=== PATIENT | male | born 1950 | race Caucasian/White ===

== ENCOUNTER 2017-03-13 08:20 | Inpatient (IN) | payer OTHER, MEDICAID ==
[2017-03-13] MEDS ORDERED: fentaNYL 100 MCG/2 ML INJ ONE ×2 (08:24→11:53)
[2017-03-13] MEDS ORDERED: MIDAZOLAM 2 MG/2 ML VIAL ONE ×4 (08:25→12:08)
[2017-03-13] MEDS ORDERED: IOPAMIDOL (ISOVUE-370) 150 ML BTL IV ONE ×3 (08:26→12:49)
--- NOTE | 2017-03-13 08:31 | CPEKG ---
Heart Rate: 60 RR Interval: 1000 P-R Interval: 184 QRSD Interval: 92 QT Interval: 440 QTC Interval: 440 P [place]: 80 QRS [place]: -2 T Wave [place]: 67 EKG Severity - NORMAL ECG - EKG Impression: SINUS RHYTHM Electronically Signed By: Kristopher Nye 13-Mar-2017 10:16:44
[2017-03-13 08:32] LABS: % IMMATURE GRANULYOCYTES 0.3 % (0.0-1.1); ABSOLUTE IMMATURE GRANULOCYTES 0.02 10^3/uL (0.00-0.10); ADD DIFF? NO; ADD MORPH? NO; ADD SCAN? NO; ATYPICAL LYMPHOCYTE FLAG 10 (0-99); FRAGMENT RBC FLAG 0 (0-99); LEFT SHIFT FLG 0 (0-99); LIPEMIA HEMOLYSIS FLAG 80 (0-99); MEAN CELL HEMOGLOBIN 28.9 pg (27.9-34.1); MEAN CELL HEMOGLOBIN CONCENTR. 32.7 g/dL (32.4-36.7); MEAN CELL VOLUME 88.3 fL (81.5-99.8); MEAN PLATELET VOLUME 9.7 fL (8.7-11.7); PLATELET CLUMPS FLAG 20 (0-99); PLATELET COUNT 148 10^3/uL (150-400); RED BLOOD CELL COUNT 5.89 10^6/uL (4.40-6.38); RED CELL DISTRIBUTION WIDTH 12.5 % (11.5-15.2)
--- NOTE | 2017-03-13 08:35 | EDPHY ---
H & P Time Seen by Provider: 03/13/17 08:22 HPI/ROS: CHIEF COMPLAINT: Chest pain HISTORY OF PRESENT ILLNESS: Patient arrives as a cardiac alert and is met by Dr. Wooten from Cardiology and myself on arrival. Apparently had substernal crushing chest pain without radiation about 30 or 40 minutes prior to arrival, was given oral aspirin and nitroglycerin by paramedics , now symptoms are less. He describes it as being lateral and inferior to his left nipple. No shortness of breath and no cough and no recent injury or trauma. Arrives as a cardiac alert. REVIEW OF SYSTEMS: Eye: no change in vision ENT: no sore throat Cardiac: HPI, no fainting Pulmonary: no cough or SOB Abdomen: no vomiting, diarrhea, abdominal pain Musculoskeletal: no back pain Skin: no rash Neuro: no headache Constitutional: no fever : no urinary symptoms A comprehensive 10 point review of systems is otherwise negative aside from elements mentioned in the history of present illness, somewhat limited by the patient's dementia. PAST MEDICAL HISTORY: Parkinson's, dementia Social history: Lives at [employer] General Appearance: Alert and conversant, cooperative. Eyes: No scleral icterus. ENT, Mouth: Normal mucous membranes. Respiratory: Normal respiratory effort, breath sounds equal, lungs are clear to auscultation. Cardiovascular: Regular rate and rhythm. Gastrointestinal: Abdomen is soft and non tender. Neurological: Alert and follows commands. Normally conversant. Face symmetric , normal movement and sensation in all extremities. Skin: Warm and dry, no rashes. Musculoskeletal: No peripheral edema and no joint swelling. Psychiatric: Not agitated. Emergency Department course/MDM: Received aspirin and nitroglycerin by EMS. EKG reviewed by myself and Je does not show acute ST elevation. 835: Echocardiogram shows wall motion abnormality in the septum and apex, plan to go directly to cardiac catheterization lab. Je will contact family. Smoking Status: Former smoker Constitutional: Initial Vital Signs Temperature (C) 36.3 C 03/13/17 08:23 Heart Rate 71 03/13/17 08:23 Respiratory Rate 18 03/13/17 08:23 Blood Pressure 150/87 H 03/13/17 08:23 O2 Sat (%) 97 03/13/17 08:23 O2 Delivery Mode Room Air Allergies/Adverse Reactions: benztropine Allergy (Verified 07/18/16 20:16) levodopa Allergy (Verified 07/18/16 20:16) Sulfa (Sulfonamide Antibiotics) Allergy (Verified 07/18/16 20:16) Home Medications: Medication Instructions Recorded Acetaminophen [Tylenol 325mg (*)] 650 mg PO BID PRN 07/18/16 Carbidopa/Levo Cr 25/100Mg 1 tab PO DAILY 03/13/17 [Sinemet CR 25/100 MG (*)] Carbidopa/Levodopa 25/100Mg 1 tab PO QID 03/13/17 [Sinemet 25/100 MG (*)] Rivastigmine Tartrate 4.5 mg PO BID 03/13/17 [Rivastigmine] Medical Decision Making - Diagnostics EKG Interpretation: 12-lead EKG interpreted by me; official reading is in trace master. My interpretation is sinus rhythm with possibly some hyperacute anterior T-waves but no ST elevation or depression. Reviewed with Dr. Wooten from Cardiology. Differential Diagnosis: Differential diagnosis considered for chest pain including but not limited to myocardial ischemia, aortic dissection, pericarditis, pulmonary embolus, chest wall pain, pleural inflammation and pulmonary infectious causes. Critical Care Time: Critical care time spent by me, Dr. Nye, exclusively with the care of this patient was 20 minutes, exclusive of PA or MOISTURE METER OPERATOR time and exclusive of separate procedures. The organ system at risk was cardiovascular and I ordered consultation with rotor pilot, EKG, diagnostic studies reviewed including echocardiogram to stabilize the patient and prevent worsening of the patient's condition. - Data Points Laboratory Results: Laboratory Results 03/13/17 08:25 03/13/17 08:25 03/13/17 03/13/17 03/13/17 08:35 08:25 08:25 WBC 7.25 10^3/uL 10^3/uL (3.80-9.50) RBC 5.89 10^6/uL 10^6/uL (4.40-6.38) Hgb 17.0 g/dL g/dL (13.7-17.5) POC Hgb Hct 52.0 % H % (40.0-51.0) POC Hct MCV 88.3 fL fL (81.5-99.8) MCH 28.9 pg pg (27.9-34.1) MCHC 32.7 g/dL g/dL (32.4-36.7) RDW 12.5 % % (11.5-15.2) Plt Count 148 10^3/uL L 10^3/uL (150-400) MPV 9.7 fL fL (8.7-11.7) Neut % (Auto) 42.3 % % (39.3-74.2) Lymph % (Auto) 48.7 % H % (15.0-45.0) [place] % (Auto) 7.0 % % (4.5-13.0) Eos % (Auto) 0.7 % % (0.6-7.6) Baso % (Auto) 1.0 % % (0.3-1.7) Nucleat RBC Rel Count 0.0 % % (0.0-0.2) Absolute Neuts (auto) 3.07 10^3/uL 10^3/uL (1.70-6.50) Absolute Lymphs (auto) 3.53 10^3/uL H 10^3/uL (1.00-3.00) Absolute Monos (auto) 0.51 10^3/uL 10^3/uL (0.30-0.80) Absolute Eos (auto) 0.05 10^3/uL 10^3/uL (0.03-0.40) Absolute Basos (auto) 0.07 10^3/uL 10^3/uL (0.02-0.10) Absolute Nucleated RBC 0.00 10^3/uL 10^3/uL (0-0.01) Immature Gran % 0.3 % % (0.0-1.1) Immature Gran # 0.02 10^3/uL 10^3/uL (0.00-0.10) D-Dimer 0.43 ug/mLFEU ug/mLFEU (0.00-0.50) POC Sodium Sodium 144 mEq/L mEq/L (134-144) POC Potassium Potassium 4.5 mEq/L mEq/L (3.5-5.2) POC Chloride Chloride 108 mEq/L mEq/L (97-110) Carbon Dioxide 21 mEq/l L mEq/l (22-31) Anion Gap 15 mEq/L mEq/L (8-16) POC BUN BUN 11 mg/dL mg/dL (7-23) Creatinine 0.7 mg/dL mg/dL (0.7-1.3) POC Creatinine Estimated GFR > 60 Glucose 119 mg/dL H mg/dL (70-100) POC Glucose Calcium 9.7 mg/dL mg/dL (8.5-10.4) Total Bilirubin 1.1 mg/dL mg/dL (0.1-1.4) AST 24 IU/L IU/L (17-59) ALT 18 IU/L L IU/L (21-72) Alkaline Phosphatase 94 IU/L IU/L (38-126) Troponin I < 0.012 ng/mL ng/mL (0-0.034) Total Protein 7.2 g/dL g/dL (6.3-8.2) Albumin 4.5 g/dL g/dL (3.5-5.0) 03/13/17 08:20 WBC RBC Hgb POC Hgb 17.3 gm/dL gm/dL (13.7-17.5) Hct POC Hct 51 % % (40-51) MCV MCH MCHC RDW Plt Count MPV Neut % (Auto) Lymph % (Auto) [place] % (Auto) Eos % (Auto) Baso % (Auto) Nucleat RBC Rel Count Absolute Neuts (auto) Absolute Lymphs (auto) Absolute Monos (auto) Absolute Eos (auto) Absolute Basos (auto) Absolute Nucleated RBC Immature Gran % Immature Gran # D-Dimer POC Sodium 142 mEq/L mEq/L (134-144) Sodium POC Potassium 3.9 mEq/L mEq/L (3.3-5.0) Potassium POC Chloride 102 mEq/L mEq/L (97-110) Chloride Carbon Dioxide Anion Gap POC BUN 11 mg/dL mg/dL (7-23) BUN Creatinine POC Creatinine 0.8 mg/dL mg/dL (0.7-1.3) Estimated GFR Glucose POC Glucose 139 mg/dL H mg/dL (70-100) Calcium Total Bilirubin AST ALT Alkaline Phosphatase Troponin I Total Protein Albumin Medications Given: Discontinued Medications Clopidogrel Bisulfate (Plavix) 600 mg PO ONCE ONE Stop: 03/13/17 10:00 Last Admin: 03/13/17 14:04 Dose: Not Given Point of Care Test Results: 03/13/17 08:20 POC Sodium 142 POC Potassium 3.9 POC Chloride 102 POC BUN 11 POC Creatinine 0.8 POC Glucose 139 H Departure - Departure Disposition: To OP Cath/Surgery Clinical Impression: Acute coronary syndrome Chest pain Qualifiers: Chest pain type: unspecified Qualified Code(s): R07.9 - Chest pain, unspecified Condition: Good
[2017-03-13 08:54] LABS: TROPONIN I < 0.012 ng/mL (0-0.034)
[2017-03-13] MEDS ORDERED: BIVALIRUDIN 250 MG/5 ML VIAL IV ONE ×2 (08:58→12:17)
[2017-03-13] MEDS ORDERED: ATROPINE SULFATE 1 MG/10 ML SYR ONE ×2 (09:02→12:18)
[2017-03-13] MEDS ORDERED: EPINEPHrine 1 MG/10 ML SYR IVP ONE ×2 (09:02→12:18)
[2017-03-13 09:03] LABS: ALANINE AMINOTRANSFERASE 18 IU/L (21-72); ALBUMIN 4.5 g/dL (3.5-5.0); ALKALINE PHOSPHATASE 94 IU/L (38-126); ANION GAP 15 mEq/L (8-16); ASPARTATE AMINOTRANSFERASE 24 IU/L (17-59); BILIRUBIN,TOTAL 1.1 mg/dL (0.1-1.4); CALCIUM 9.7 mg/dL (8.5-10.4); CARBON DIOXIDE 21 mEq/l (22-31); CHLORIDE 108 mEq/L (97-110); CREATININE 0.7 mg/dL (0.7-1.3); GLOMERULAR FILTRATION RATE > 60; GLUCOSE 119 mg/dL (70-100); POTASSIUM 4.5 mEq/L (3.5-5.2); SODIUM 144 mEq/L (134-144); TOTAL PROTEIN 7.2 g/dL (6.3-8.2)
[2017-03-13] MEDS ORDERED: NITROGLYCERIN 1,500 MCG/15 ML VIAL MISC ONE ×2 (09:10→12:18)
[2017-03-13] MEDS ORDERED: CLOPIDOGREL BISULFATE 75 MG TAB ONE (09:33)
[2017-03-13] MEDS ORDERED: ATROPINE SULFATE 1 MG/10 ML SYR IVP PRN (09:59)
[2017-03-13] MEDS ORDERED: NITROGLYCERIN 0.4 MG BTL SL PRN (09:59)
[2017-03-13] MEDS ORDERED: TEMAZEPAM 15 MG CAP PO PRN (09:59)
[2017-03-13] MEDS ORDERED: CLOPIDOGREL BISULFATE 75 MG TAB PO ONE (09:59)
--- NOTE | 2017-03-13 10:36 | GHP ---
[f rep st] HISTORY AND PHYSICAL DATE OF ADMISSION: 03/13/2017 CHIEF COMPLAINT: Cardiac alert. HISTORY OF PRESENT ILLNESS: Mr. Esquivel is a 66-year-old gentleman with limited cardiac risk facto rs who presented to the emergency department on 03/13/2017, as a cardiac alert. The patient was in his usual state of health until approximately 30 to 40 minutes prior to admission when he began to e xperience chest pain described as an ache located over the left lateral precordium extending into hi s axilla. The chest discomfort was associated with nausea, vomiting, and diaphoresis. When his sym ptoms did not improve, EMS was activated, and he was brought to the emergency department for further evaluation. Initial EKGs in the field showed sinus rhythm with hyperacute T-waves with J-point hanna vation across the precordial leads. The patient was treated with aspirin and nitroglycerin with imp rovement in his symptoms. On arrival in the emergency department, the patient was still continuing to have chest discomfort. We were consulted to help in the further management of this patient. The patient denies a previous history of coronary artery disease. There is no history of hypertension, hyperlipidemia, or diabetes mellitus. Repeat EKG in the emergency department demonstrates sinus rh ythm, normal axis, normal intervals, [address]-segment elevation in lead V1 with J-point elevation acr oss the precordial leads. The patient has continued to have symptoms of chest discomfort but not na usea, vomiting, or diaphoresis at this time. PAST MEDICAL HISTORY: 1. Parkinson's. 2. Dementia. MEDICATIONS: Please see medicine reconciliation form. ALLERGIES: 1. Benztropine. 2. Levodopa. 3. Sulfa. SOCIAL HISTORY: The patient lives at [place]. FAMILY HISTORY: Noncontributory. REVIEW OF SYSTEMS: Ten-point review of systems is negative except as noted in HPI. PHYSICAL EXAMINATION: GENERAL: Patient is resting in bed. He appears to be mild distress. VITALS : Temperature is afebrile, pulse is 69, blood pressure 144/82, SaO2 97% on room air. HEENT: Normo cephalic, atraumatic. Extraocular muscles intact. The patient has typical facies consistent with P arkinson's. LUNGS: Clear to auscultation bilaterally. CARDIOVASCULAR: Regular rate and rhythm S1 , S2. Positive S4. ABDOMEN: Soft, nontender, normoactive bowel sounds. EXTREMITIES: No clubbing , cyanosis, or edema. NEURO: Patient is awake, alert. LABORATORY: White blood cell count is 7.25, hemoglobin is 17.0, hematocrit is 52.0, platelet count is 148. Sodium 144, potassium 4.5, chloride 108, CO2 21, BUN 11, creatinine 0.7. Initial troponin is less than 0.012. Echocardiogram: Rapid bedside echocardiogram demonstrated apical wall motion abnormality. ASSESSMENT AND PLAN: Mr. Esquivel is a 66-year-old gentleman with limited cardiac risk factors, who presents with an acute coronary syndrome. His initial troponin is within normal limits. His initi al EKG is not diagnostic of an ST-elevation myocardial infarction, but he is continuing to have symp toms of chest discomfort. An echocardiogram performed in the setting of chest discomfort demonstrat es an apical wall motion abnormality. Reviewed risks and benefits of cardiac catheterization with t he patient. Will arrange to have this performed emergently. Also called to discuss with the patien florence's power of health care attorney, his brother and [id number], they were not available for consultation. /[id number]/MODL
--- NOTE | 2017-03-13 11:42 | CPEKG ---
Heart Rate: 62 RR Interval: 968 P-R Interval: 188 QRSD Interval: 82 QT Interval: 420 QTC Interval: 427 P [place]: 86 QRS [place]: 26 T Wave [place]: 70 EKG Severity - OTHERWISE NORMAL ECG - EKG Impression: SINUS RHYTHM EKG Impression: MINIMAL ST ELEVATION, ANTERIOR LEADS Electronically Signed By: Kristopher Nye 13-Mar-2017 13:58:09
[2017-03-13] MEDS ORDERED: LIDOCAINE 1% 300 MG/30 ML SDV ONE (11:52)
[2017-03-13] MEDS ORDERED: EPTIFIBATIDE IV SCH (12:00)
[2017-03-13] MEDS ORDERED: EPTIFIBATIDE 200 MG/100 ML BOTTLE IV ONE (12:19)
[2017-03-13] MEDS ORDERED: EPTIFIBATIDE 20 MG/10 ML VIAL IVP ONE (13:03)
[2017-03-13] MEDS ORDERED: LABETALOL HCL 5 MG/ML 20 ML MDV ONE (13:10)
--- NOTE | 2017-03-13 13:57 | CPIP ---
[f rep st] INVASIVE CARDIAC PROCEDURE DATE OF PROCEDURE: 03/13/2017 PROCEDURE PERFORMED: 1. Coronary angiography. 2. Left ventriculography. 3. Stenting of left anterior descending coronary artery with Synergy drug-eluting stents. 4. Thrombectomy of left anterior descending coronary artery. INDICATION: Acute coronary syndrome. ACCESS: Patient was prepped and draped in sterile fashion. 1% lidocaine was used to anesthetize th e right inguinal region. A 6-[place] introducer sheath was placed selectively into the right common femoral artery via modified Seldinger technique. CORONARY ANGIOGRAPHY: A 6-[place] JL4 was advanced to the left main coronary artery and images obtai brittany. The left main coronary artery bifurcated into an LAD and circumflex coronary arteries. The le ft main coronary artery appeared normal. The left anterior descending coronary artery gave rise to one prominent branching diagonal artery. The left anterior descending coronary artery is diffusely diseased. In the mid I segment, there is sequential 30% to 40% stenosis present. In the mid II seg ment, there is a long segmental thrombotic 95% stenosis present with DAHLIA-3 flow. The first diagona l artery was a large vessel with mild diffuse disease in the mid vessel. There was no stenosis grea ter than 20%. The circumflex coronary artery is a large vessel, but was nondominant. Circumflex co ronary artery gave rise to two prominent OM branches. The circumflex coronary artery had moderate d iffuse disease throughout with no stenosis greater than 30%. A 6-[place] JR4 was advanced to the rig ht coronary artery. Images obtained. The right coronary artery is dominant. The right coronary ar jordin had a single discrete 100% occlusion in the mid vessel. There was bridging, right to right col laterals indicating this is likely chronic. LEFT VENTRICULOGRAPHY: A 6-[place] pigtail catheter was advanced to the left ventricle and images ob tained. Left ventricle was normal in size with mildly reduced systolic function. Estimated ejectio n fraction was 50%. The apex and the infero apex were hypokinetic. Percutaneous coronary intervention of the left anterior descending coronary artery. A 6-[place] EBU 3.5 catheter was advanced to the left main coronary artery and images obtained. Angiography confirm ed the presence of high-grade disease involving the mid left anterior descending coronary artery. A Luge wire was placed in the distal vessel and position verified by angiography. A thrombectomy cat heter was advanced and thrombectomy performed. Followup angiography demonstrated significant residu al stenosis with DAHLIA-3 flow. A 2.5 x 28 Synergy drug-eluting stent was then placed across the lesi on and deployed. Followup angiography demonstrated DAHLIA-3 flow at the distal edge of the stent. The re was an edge dissection versus significant stenosis. The patient was given nitroglycerin without resolution of the stenosis. A second 2.5 Synergy stent was then placed. The first stent telescoped distally. This was a 2.5 x 12 Synergy stent and deployed. Followup angiography demonstrated DAHLIA- 3 flow. No residual stenosis. COMPLICATIONS: None. CONCLUSIONS: 1. Two vessel coronary artery disease. 2. Reduced left ventricular systolic function with an estimated ejection fraction of 50%. Apical h ypokinesis. 3. Status post successful percutaneous coronary intervention of the left anterior descending ulloa ry artery with Synergy drug-eluting stent. /[id number]/MODL
[2017-03-13 15:48] LABS: CK-MB INTERPRETATION POSITIVE (NEGATIVE)
--- NOTE | 2017-03-13 18:23 | GCON ---
[f rep st] CONSULTATION SCALE MODEL MAKER CONSULTATION DATE OF CONSULTATION: 03/13/2017 REASON FOR ADMISSION: Acute MIs, coronary artery disease, status post stents. HISTORY OF PRESENT ILLNESS: This patient is a very pleasant 66-year-old white male with a past [facility] history of Parkinson's and dementia. He presented to the emergency room as a cardiac alert. He was seen quickly by Cardiology and was taken to the cardiac catheterization lab. He was found to h ave stenosis of the left anterior descending and he received 2 stents. He was admitted to the [facility] care unit. Currently, he is resting comfortably. He is complaining of some moderate chest discomfort. He stat es prior to this, he was in his normal state of health. There was no associated nausea, vomiting, o r diaphoresis at the time. PAST MEDICAL HISTORY: Significant for Parkinson's and dementia. ALLERGIES: Are to benztropine, levodopa and sulfa. SOCIAL HISTORY: No history of tobacco use. He resides at [place]. PHYSICAL EXAM: VITAL SIGNS: Blood pressure is 157/87, pulse 105, respirations 76, temperature is 3 6.3, oxygen saturation 97% on room air. GENERAL: He is a very thin, elderly white male who is rest ing comfortably, on supplemental oxygen. HEENT: Eyes are [place], EOMI. Throat shows no erythema or tonsillar hypertrophy. NECK: Supple. No cervical adenopathy. HEART: Regular rate and rhythm wit h a 2/6 systolic murmur at the left sternal border without radiation. LUNGS: Diminished breath shayne nds with mild prolongation of the expiratory phase, but there is no wheeze. ABDOMEN: Soft, nontend er. Bowel sounds are present in all 4 quadrants. EXTREMITIES: No clubbing, cyanosis, or edema. LABORATORIES: White count is 7.2, hemoglobin is 17, hematocrit 52, platelet count is 148. Sodium 1 42, potassium 3.9, chloride 102, CO2 is 21, BUN 11, creatinine 0.7, glucose is 139. AST and ALT are normal. Troponins are negative. IMPRESSION: 1. Acute myocardial infarction. 2. Coronary artery disease status post stents. 3. History of Parkinson disease. 4. Dementia. RECOMMENDATIONS: 1. DVT and PE prophylaxis. 2. Stress ulcer prophylaxis. 3. Adequate pain control. 4. Continue his home medications. Thank you very much. /[id number]/MODL
[2017-03-13] MEDS: CARVEDILOL 3.125 MG TAB PO SCH (20:04)
[2017-03-13] MEDS: CARBIDOPA/LEVODOPA 25 MG/100 MG TAB PO SCH (20:04)
[2017-03-13] MEDS: CARBIDOPA/LEVO CR 25 MG/100 MG TAB PO SCH (20:08)
[2017-03-13] MEDS: ONDANSETRON 4 MG/2 ML VIAL IVP PRN (20:46)
[2017-03-13] MEDS ORDERED: RIVASTIGMINE TARTRATE 4.5 MG PO SCH (21:00)
[2017-03-14 04:58] LABS: % IMMATURE GRANULYOCYTES 0.2 % (0.0-1.1); ABSOLUTE IMMATURE GRANULOCYTES 0.02 10^3/uL (0.00-0.10); ADD DIFF? NO; ADD MORPH? NO; ADD SCAN? NO; ATYPICAL LYMPHOCYTE FLAG 0 (0-99); FRAGMENT RBC FLAG 10 (0-99); HEMATOCRIT 46.7 % (40.0-51.0); HEMOGLOBIN 15.5 g/dL (13.7-17.5); LEFT SHIFT FLG 0 (0-99); LIPEMIA HEMOLYSIS FLAG 80 (0-99); MEAN CELL HEMOGLOBIN 28.7 pg (27.9-34.1); MEAN CELL HEMOGLOBIN CONCENTR. 33.2 g/dL (32.4-36.7); MEAN CELL VOLUME 86.3 fL (81.5-99.8); PLATELET CLUMPS FLAG 30 (0-99); PLATELET COUNT 153 10^3/uL (150-400); RED BLOOD CELL COUNT 5.41 10^6/uL (4.40-6.38); RED CELL DISTRIBUTION WIDTH 12.5 % (11.5-15.2)
--- NOTE | 2017-03-14 05:04 | CPIP ---
[f rep st] INVASIVE CARDIAC PROCEDURE DATE OF PROCEDURE: 03/13/2017 PROCEDURE: 1. Coronary angiography. 2. Thrombectomy of left anterior descending coronary artery. 3. Intravascular ultrasound of left anterior descending coronary artery. 4. Stenting of left anterior descending coronary artery with Synergy drug-eluting stent. INDICATION: Patient initially presented with an acute coronary syndrome and a new wall motion abnor mality on his echocardiogram. He was taken to the cardiac catheterization laboratory for risk strat ification. Coronary angiography demonstrated 2 vessel coronary artery disease involving the right c oronary artery and left anterior descending coronary artery. His left anterior descending coronary artery was felt to be the culprit lesion. He was treated with percutaneous coronary intervention us ing Synergy drug-eluting stents. The patient did well post procedure, but then developed recurrent symptoms of angina and he was brought back to the cardiac catheterization laboratory for concern of subacute stent thrombosis. ACCESS: The patient was prepped and draped in sterile fashion. 1% lidocaine was used to anesthetiz e the left inguinal region. A 6-Maltese introducer sheath was placed selectively in the left common femoral artery via modified Seldinger technique. CORONARY ANGIOGRAPHY: A 6-Maltese JL4 was advanced to the left main coronary artery and images obtai brittany. The left main coronary artery bifurcated into an LAD and circumflex coronary arteries. The le ft main coronary artery appeared normal. The left anterior descending coronary artery was previousl y stented in the mid segment. The previously placed stent was thrombosed. Percutaneous coronary in tervention of the left anterior descending coronary artery. A 6-Maltese EBU 3.5 catheter was advance d to the left main coronary artery and images obtained. Angiography confirmed the presence of subac ewiiaapaayp stent thrombosis of the left anterior descending coronary artery. A Luge wire was placed in the distal vessel and position verified by angiography. Thrombectomy was performed using a Pronto cath eter. Followup angiography demonstrated DAHLIA-3 flow and mild residual stenosis. Intravascular ultr asound probe was then advanced and images obtained. Intravascular ultrasound demonstrated no eviden ce of distal edge dissection. Intravascular ultrasound demonstrated incomplete stent expansion of t he previously placed stents. In the proximal portion of the previously placed stents 220 degrees of calcium could be seen making it difficult to exclude a proximal edge dissection. The previously pl aced stents were postdilated with a 3.0 x 20 noncompliant balloon. Followup angiography demonstrate d DAHLIA 3 flow. No residual stenosis. A 3.0 x 24 Synergy drug-eluting stent was then placed in the proximal vessel and extended into the previously placed stents and deployed. Followup angiography d emonstrated DAHLIA 3 flow. No residual stenosis. COMPLICATIONS: None. CONCLUSIONS: 1. Subacute stent thrombosis of the previously placed LAD stent. 2. No evidence of distal edge dissection on intravascular ultrasound. 3. Incomplete stent expansion by intravascular ultrasound. 4. Cannot exclude proximal edge dissection secondary to 220 degrees of calcification at the site of the proximal stent. 5. Status post successful deployment of a 3.0 x 24 Synergy drug-eluting stent in the proximal left anterior descending coronary artery extending into the previously placed stent. The previously plac ed stents were postdilated with a 3.0 x 20 noncompliant balloon. /[id number]/MODL
[2017-03-14 05:15] LABS: ALANINE AMINOTRANSFERASE 30 IU/L (21-72); ALBUMIN 3.8 g/dL (3.5-5.0); ALKALINE PHOSPHATASE 81 IU/L (38-126); ANION GAP 11 mEq/L (8-16); ASPARTATE AMINOTRANSFERASE 100 IU/L (17-59); BILIRUBIN,TOTAL 2.2 mg/dL (0.1-1.4); BILIRUBIN-CONJUGATED 0.2 mg/dL (0.0-0.5); CALCIUM 9.5 mg/dL (8.5-10.4); CARBON DIOXIDE 27 mEq/l (22-31); CHLORIDE 103 mEq/L (97-110); CHOLESTEROL 204 mg/dL (140-220); CHOLESTEROL/HDL RATIO 4.64 RATIO (1.00-4.97); CREATININE 0.8 mg/dL (0.7-1.3); GLOMERULAR FILTRATION RATE > 60; GLUCOSE 87 mg/dL (70-100); HIGH DENSITY LIPOPROTEIN 44 mg/dL (40-65); LOW DENSITY LIPOPROTEIN 141 mg/dL (80-100); NON-HIGH DENSITY LIPOPROTEIN 160 mg/dL (90-129); POTASSIUM 4.1 mEq/L (3.5-5.2); SODIUM 141 mEq/L (134-144); TOTAL PROTEIN 6.4 g/dL (6.3-8.2); TRIGLYCERIDE 99 mg/dL (40-150); VERY LOW DENSITY LIPOPROTEINS 19 mg/dL (8-25)
[2017-03-14 06:07] LABS: CK-MB INTERPRETATION POSITIVE (NEGATIVE)
[2017-03-14] MEDS: CARBIDOPA/LEVODOPA 25 MG/100 MG TAB PO SCH ×4 (06:10→21:17)
[2017-03-14] MEDS: ONDANSETRON 4 MG/2 ML VIAL IVP PRN (06:10)
--- NOTE | 2017-03-14 08:48 | CPEKG ---
Heart Rate: 74 RR Interval: 811 P-R Interval: 168 QRSD Interval: 82 QT Interval: 388 QTC Interval: 431 P [place]: 75 QRS [place]: -6 T Wave [place]: 96 EKG Severity - ABNORMAL ECG - EKG Impression: SINUS RHYTHM EKG Impression: PROBABLE ANTEROSEPTAL INFARCT, AGE INDETERM Electronically Signed By: Rodríguez Wooten 15-Mar-2017 17:22:02
[2017-03-14] MEDS: TICAGRELOR 90 MG TAB PO SCH ×2 (08:56→21:17)
[2017-03-14] MEDS: CARBIDOPA/LEVO CR 25 MG/100 MG TAB PO SCH (08:56)
[2017-03-14] MEDS: CARVEDILOL 3.125 MG TAB PO SCH ×2 (08:56→17:38)
[2017-03-14] MEDS: ATORVASTATIN CALCIUM 20 MG TAB PO SCH (08:56)
[2017-03-14] MEDS: ASPIRIN EC 81 MG TAB PO SCH (08:56)
[2017-03-14] MEDS ORDERED: CLOPIDOGREL BISULFATE 75 MG TAB PO SCH (09:00)
[2017-03-14] MEDS ORDERED: LISINOPRIL 5 MG TAB PO SCH (09:00)
[2017-03-14] MEDS ORDERED: ASPIRIN EC 325 MG TAB PO SCH ×2 (09:00)
[2017-03-14] MEDS ORDERED: ATORVASTATIN CALCIUM 20 MG TAB PO SCH (09:00)
--- NOTE | 2017-03-14 09:44 | PDINTPN ---
Regulatory Affairs Manager Progress Note Assessment/Plan: Assessment: * Acute myocardial infarction-chest pain has resolved * Coronary artery disease * Status post LAD stents-on Integrilin * Parkinson's disease * Dementia * Nutrition-appetite is good Plan: [facility] 03/14/17 09:44 Subjective: Resting comfortably. Denies any current chest pain. Admits to a small headache. Appetite is adequate Objective: Vital Signs Temp Pulse Resp BP Pulse Ox 37.0 C 83 17 149/78 H 92 03/14/17 00:00 03/14/17 06:00 03/14/17 06:00 03/14/17 06:00 03/14/17 06:00 Laboratory Results 03/14/17 04:45 03/14/17 04:45 03/13/17 03/14/17 03/15/17 05:59 05:59 05:59 Intake Total 210.3 Output Total 150 Balance 60.3 Laboratory Results 03/14/17 04:45 03/14/17 04:45 03/14/17 03/13/17 03/13/17 04:45 14:35 08:25 Calcium 9.5 mg/dL mg/dL (8.5 - 10.4) Total Bilirubin 2.2 mg/dL H D mg/dL (0.1 - 1.4) Conjugated Bilirubin 0.2 mg/dL mg/dL (0.0 - 0.5) Unconjugated Bilirubin 2.0 mg/dL H mg/dL (0.0 - 1.1) AST 100 IU/L H IU/L 24 IU/L IU/L (17 - 59) (17 - 59) ALT 30 IU/L IU/L 18 IU/L L IU/L (21 - 72) (21 - 72) Alkaline Phosphatase 81 IU/L IU/L 94 IU/L IU/L (38 - 126) (38 - 126) Creatine Kinase 515 IU/L H IU/L 278 IU/L H IU/L (0 - 224) (0 - 224) CK-MB (CK-2) Fraction 50.70 ng/mL H ng/mL 27.60 ng/mL H ng/mL (0 - 3.19) (0 - 3.19) CK-MB (CK-2) % 9.8 % H % 9.9 % H % (0.0 - 4.0) (0.0 - 4.0) Creatine Kinase Interp POSITIVE H POSITIVE H Troponin I 17.300 ng/mL H ng/mL < 0.012 ng/mL ng/mL (0 - 0.034) (0 - 0.034) Total Protein 6.4 g/dL g/dL 7.2 g/dL g/dL (6.3 - 8.2) (6.3 - 8.2) Albumin 3.8 g/dL g/dL 4.5 g/dL g/dL (3.5 - 5.0) (3.5 - 5.0) Triglycerides 99 mg/dL mg/dL (40 - 150) Cholesterol 204 mg/dL mg/dL (140 - 220) Cholesterol Risk Factr 1.0 (0.2 - 1.0) LDL Cholesterol, Calc 141 mg/dL H mg/dL (80 - 100) LDL Risk Factor 1.0 (0.2 - 1.0) VLDL Cholesterol 19 mg/dL mg/dL (8 - 25) Non-HDL Cholesterol 160 mg/dL H mg/dL (90 - 129) HDL Cholesterol 44 mg/dL mg/dL (40 - 65) LDL/HDL Ratio 3.20 RATIO RATIO (1.00 - 3.64) Cholesterol/HDL Ratio 4.64 RATIO RATIO (1.00 - 4.97) Physical Exam - Physical Exam General Appearance: WD/WN, alert, no apparent distress EENT: PERRL/EOMI, normal ENT inspection, pharynx normal, TMs normal Neck: non-tender, full range of motion, supple, normal inspection Respiratory: chest non-tender, lungs clear, normal breath sounds Cardiac/Chest: normal peripheral pulses, regular rate, rhythm, systolic murmur Abdomen: normal bowel sounds, non-tender, soft Male Genitalia: deferred Rectal: deferred Skin: normal color, warm/dry ICD10 Worksheet Patient Problems: Problems Problem Status Onset Acute coronary syndrome Acute Chest pain Acute Dehydration Acute Failure to thrive Acute Generalized weakness Acute Poor nutrition Acute
[2017-03-14 14:40] LABS: CK-MB INTERPRETATION POSITIVE (NEGATIVE)
--- NOTE | 2017-03-14 16:49 | SOAPPROG ---
HARPREET Progress Note Assessment/Plan: 1. ACS - Pt presented with an ACS. His echocardiogram demonstrated an apical wall motion abnormality. 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 He was treated with PCI of his LAD using synergy PAMELA. His post procedure course was complicated by subacute stent thrombosis. He was treated with repeat PCI of his LAD. Peak CPK was 515. LVEF was 50% with apical hypokinesis. Pt denies recurrent angina. No orthopnea or PND. No significant arrhythmias overnight. --> change plavix to brilinta given SAT --> Continue asa and coreg. 2. CM - Pt has an ICM with an EF of 50%. He denies symptoms of CHF. lisinopril was added to his coreg this am, however, he has become hypotensive. Will DC lisinopril at this time. --> Repeat echocardiogram in am 3. Hyperlipidemia - LDL = 141 --> Start lipitor 40 mg daily Subjective: No chest pain No orthopnea or PND No significant arrhythmias on telemetry monitoring this am. Objective: Vital Signs Temp Pulse Resp BP Pulse Ox 36.2 C 77 16 77/44 L 95 03/14/17 16:00 03/14/17 16:00 03/14/17 16:00 03/14/17 16:00 03/14/17 16:00 Laboratory Results 03/14/17 04:45 03/14/17 04:45 03/13/17 03/14/17 03/15/17 05:59 05:59 05:59 Intake Total 210.3 Output Total 150 Balance 60.3 Physical Exam - Physical Exam General Appearance: alert, no apparent distress Respiratory: lungs clear Cardiac/Chest: regular rate, rhythm Abdomen: normal bowel sounds, non-tender, soft Extremities: other (No hematoma or echymosis R and L access sites), No pedal edema Neuro/Psych: alert ICD10 Worksheet Patient Problems: Problems Problem Status Onset Acute coronary syndrome Acute Chest pain Acute Dehydration Acute Failure to thrive Acute Generalized weakness Acute Poor nutrition Acute
[2017-03-14] MEDS: RIVASTIGMINE TARTRATE 1.5 MG CAP PO SCH (21:18)
[2017-03-15] MEDS: CARBIDOPA/LEVODOPA 25 MG/100 MG TAB PO SCH ×3 (06:23→16:25)
--- NOTE | 2017-03-15 08:49 | PDINTPN ---
Marketing Admin Progress Note Assessment/Plan: Assessment: * Acute myocardial infarction-chest pain has resolved * Coronary artery disease * Status post LAD stents * Parkinson's disease * Dementia-patient awake and alert. Answering questions appropriately. * Nutrition-appetite is good Plan: [employer] Subjective: Resting comfortably. Denies any chest pain. Had many questions about his heart. Objective: Vital Signs Temp Pulse Resp BP Pulse Ox 36.3 C 74 15 97/53 L 96 03/15/17 08:00 03/15/17 08:00 03/15/17 08:00 03/15/17 08:00 03/15/17 08:00 Laboratory Results 03/14/17 04:45 03/14/17 04:45 03/14/17 03/15/17 03/16/17 05:59 05:59 05:59 Intake Total 210.3 800 Output Total 150 450 Balance 60.3 350 Laboratory Results 03/14/17 04:45 03/14/17 04:45 03/14/17 13:00 Creatine Kinase 346 IU/L H IU/L (0 - 224) CK-MB (CK-2) Fraction 25.10 ng/mL H ng/mL (0 - 3.19) CK-MB (CK-2) % 7.3 % H % (0.0 - 4.0) Creatine Kinase Interp POSITIVE H Troponin I 12.100 ng/mL H ng/mL (0 - 0.034) Physical Exam - Physical Exam General Appearance: alert, no apparent distress EENT: PERRL/EOMI, normal ENT inspection Neck: non-tender, full range of motion, supple, normal inspection Respiratory: chest non-tender, lungs clear, normal breath sounds Cardiac/Chest: normal peripheral pulses, regular rate, rhythm, systolic murmur Peripheral Pulses: 2+: carotid (R), carotid (L), femoral (R), femoral (L), dorsalis-pedis (R), dorsalis-pedis (L) Abdomen: normal bowel sounds, non-tender, soft Male Genitalia: deferred Rectal: deferred Skin: normal color, warm/dry Extremities: normal range of motion, non-tender, normal inspection, normal capillary refill ICD10 Worksheet Patient Problems: Problems Problem Status Onset Acute coronary syndrome Acute Chest pain Acute Dehydration Acute Failure to thrive Acute Generalized weakness Acute Poor nutrition Acute
[2017-03-15] MEDS: ATORVASTATIN CALCIUM 20 MG TAB PO SCH (08:56)
[2017-03-15] MEDS: ASPIRIN EC 81 MG TAB PO SCH (08:56)
[2017-03-15] MEDS: CARBIDOPA/LEVO CR 25 MG/100 MG TAB PO SCH (08:57)
[2017-03-15] MEDS: TICAGRELOR 90 MG TAB PO SCH ×2 (08:57→21:33)
[2017-03-15] MEDS: RIVASTIGMINE TARTRATE 1.5 MG CAP PO SCH ×3 (09:22→21:38)
--- NOTE | 2017-03-15 09:38 | ECHO ---
[id number] + + [address] : : [place] [address] : : [phone] + + Adult Echocardiographic Report + ---------+ :Name: ADELIA DSOUZA MStudy Date: 03/15/2017 07:46 AM : : Hospital Admission Number: [id number] Gertrude infante: [birth year]: :: 1950 Gender: Male Height: 68 i n : :Age: 66 yrs Race: WH Weight: 140 lb : :Reason For Study: Eval LV Fx : : BSA: 1.8 met ers2 : :History: Post [place] : + ---------+ MMode/2D Measurements \T\ Calculations IVSd: 0.90 cm LVIDd: 4.8 cm FS: 27.5 % Ao root diam: LVPWd: 0.93 cm LVIDs: 3.5 cm EDV(Teich): 2.9 cm 108.7 ml ACS: 1.6 cm ESV(Teich): 50.7 ml EF(Teich): 53.4 % LVLd ap4: 8.6 cm SV(MOD-sp4): EDV(MOD-sp4): 26.0 ml 62.0 ml LVLs ap4: 7.7 cm ESV(MOD-sp4): 36.0 ml EF(MOD-sp4): 41.9 % Normal Measurement Values: + + :LVIDd (3.5-5.7cm) IVSd (0.6-1.1cm) LVPWd (0.6-1.1cm) Aortic Root (2.0-3.7cm)Left Atrium (1.5-4.0cm): :LV Vol(d) (76-115ml) LV Vol(s) (29-48ml) Ejec Fraction (50-65%)PV Reed (0.6- 1.2m/s) TV Reed (0.4-1.0m/s) : :MV E Reed (0.8-1.0m/s)MV A Reed (0.3-1.0m/s)LVOT Reed (0.7-1.2m/s) Asc Ao Reed ( 0.9-1.8m/s) : + + Doppler Measurements \T\ Calculations MV E max reed: Ao V2 max: LV V1 max: PA V2 max: 44.9 cm/sec 104.5 cm/sec 100.2 cm/sec 81.4 cm/sec MV A max reed: Ao max P.4 mmHgLV V1 max PG: PA max P.3 cm/sec 4.0 mmHg 2.7 mmHg MV E/A: 0.83 Left Ventricle The left ventricle is normal in size. There is normal left ventricular wall thickness. Ejection Fraction = 45-50%. The distal anteroseptal and anterior segments are hypokinetic. There is Doppler evidence for diastolic dysfunction. Right Ventricle The right ventricle is normal in size and function. Atria The left atrial size is normal. Right atrial size is normal. Mitral Valve The mitral valve is normal in structure and function. There is no mitral valve stenosis. There is no mitral regurgitation noted. Tricuspid Valve There is trace to mild tricuspid regurgitation. Right ventricular systolic pressure is 41mmHg. There is Doppler evidence for mild pulmonary hypertension. Aortic Valve The aortic valve is not well visualized. There is no aortic stenosis. There is no aortic insufficiency. Pulmonic Valve The pulmonic valve is not well visualized. There is no pulmonic valvular regurgitation. Great Vessels The aortic root is normal size. Pericardium/Pleural There is no pericardial effusion. Conclusion A complete two-dimensional transthoracic echocardiogram was performed (2D, M-mode, Doppler and color flow Doppler). 1. The left ventricle is normal in size. The distal anteroseptal and anterior segments are hypokinetic. The Ejection Fraction = 45-50%. 2. The mitral valve is normal in structure and function. 3. The aortic valve is not well visualized. There is no aortic stenosis or insufficiency by doppler. 4. Right ventricular systolic pressure is 41mmHg. 5. When compared to the 03/13/17 study. There is no significant change. Final Reading Physician: Rodríguez Wooten MD electronically signed on 03/15/2017 09:37 AM Ordering Physician: oRdríguez Wooten Performed By: Constantine Bess, [facility]
[2017-03-15] MEDS: CARVEDILOL 3.125 MG TAB PO SCH ×2 (11:36→18:01)
--- NOTE | 2017-03-15 12:56 | SOAPPROG ---
HARPREET Progress Note Assessment/Plan: 1. ACS - Pt presented with an ACS. His echocardiogram demonstrated an apical wall motion abnormality. 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 He was treated with PCI of his LAD using synergy PAMELA. His post procedure course was complicated by subacute stent thrombosis. He was treated with repeat PCI of his LAD. Peak CPK was 515. LVEF was 50% with apical hypokinesis. Pt denies recurrent angina. No orthopnea or PND. No significant arrhythmias overnight. --> Continue asa, brilinta, and coreg. --> No lisinopril secondary to hypotension on 03/14 post medication 2. CM - Pt has an ICM with an EF of 50%. He denies symptoms of CHF. --> Continue coreg --> No lisinopril secondary to hypotension 3. Hyperlipidemia - LDL = 141 --> Continue lipitor 40 mg daily --> FLP in 3 to 6 months to evaluate therapy. 4. Hypotension - Pt was hypotensive on 03/14. Suspect secondary to lisinopril as well as autonomic insufficiency related to Parkinsons --> Will DC lisinopril --> Continue to follow overnight as we titrate hi medications 03/15/17 12:53 Subjective: No chest pain No orthopnea or PND Up to chair. anticipating PT and OT today Taking medications. Did not like lisinopril No syncope or pre-syncope Objective: Vital Signs Temp Pulse Resp BP Pulse Ox 36.5 C 72 15 123/72 H 93 03/15/17 12:22 03/15/17 12:22 03/15/17 12:22 03/15/17 12:22 03/15/17 12:22 Laboratory Results 03/14/17 04:45 03/14/17 04:45 03/14/17 03/15/17 03/16/17 05:59 05:59 05:59 Intake Total 210.3 800 Output Total 150 450 Balance 60.3 350 Physical Exam - Physical Exam General Appearance: alert, no apparent distress Respiratory: lungs clear Cardiac/Chest: regular rate, rhythm Abdomen: non-tender, soft Extremities: other (No hematoma or echymosis R and L access sites), No pedal edema Neuro/Psych: alert ICD10 Worksheet Patient Problems: Problems Problem Status Onset Acute coronary syndrome Acute Chest pain Acute Dehydration Acute Failure to thrive Acute Generalized weakness Acute Poor nutrition Acute
--- NOTE | 2017-03-15 14:15 | WOCRNPDOC ---
WOCRN Advanced Assessment Note - Skin Integrity Problem, Advanced Assess Coccyx Dressing Type: Allevyn Life Dressing Description: Clean/Dry, Intact Exudate Amount: None Exudate Characteristic(s): None Integumentary Issue Intervention: Visualized Under Dressing Lauren Wound Tissue: Blanching, Intact Lauren Wound Swelling: None Wound Bed Color: Red Skin Integrity Problem Comment: Blanching erythema noted throughout patient's sacrum/coccyx, skin intact throughout. Due to his mobility issues, recommend protective foam dressing, Accu-max pump on his bed, and turns q2. Report given to liquid hydrogen plant operatorJUSTINE Fernandez.
[2017-03-15] MEDS ORDERED: CARBIDOPA/LEVODOPA 25 MG/100 MG TAB PO SCH (19:00)
[2017-03-15] MEDS ORDERED: CARBIDOPA/LEVO CR 25 MG/100 MG TAB PO SCH (21:00)
[2017-03-16] MEDS ORDERED: TICAGRELOR 90 MG TAB PO SCH
[2017-03-16] MEDS ORDERED: CARVEDILOL 3.125 MG TAB PO SCH
[2017-03-16 04:11] VITALS: O2SAT 94
[2017-03-16 07:50] VITALS: RESP 18
[2017-03-16] MEDS: CARBIDOPA/LEVODOPA 25 MG/100 MG TAB PO SCH ×3 (07:50→15:03)
[2017-03-16] MEDS: CARVEDILOL 3.125 MG TAB PO SCH ×2 (07:50→18:04)
[2017-03-16] MEDS: ATORVASTATIN CALCIUM 20 MG TAB PO SCH (09:10)
[2017-03-16] MEDS: TICAGRELOR 90 MG TAB PO SCH (09:10)
[2017-03-16] MEDS: RIVASTIGMINE TARTRATE 1.5 MG CAP PO SCH (09:10)
[2017-03-16] MEDS: ASPIRIN EC 81 MG TAB PO SCH (09:11)
[2017-03-16 12:40] VITALS: TEMP 97.6
[2017-03-16] MEDS ORDERED: NITROGLYCERIN 0.4 MG BTL SL PRN (16:13)
--- NOTE | 2017-03-16 16:32 | PDIAF ---
- Diagnosis Diagnosis: ACS CAD PCI LAD Code Status: Full Code - Medication Management Discharge Medications: Medications to Continue on Transfer Acetaminophen [Tylenol 325mg (*)] 650 mg PO BID PRN 07/18/16 [Last Taken ] Carbidopa/Levo Cr 25/100Mg [Sinemet CR 25/100 MG (*)] 1 tab PO DAILY 03/13/17 [ Last Taken 03/13/17] Carbidopa/Levodopa 25/100Mg [Sinemet 25/100 MG (*)] 1 tab PO QID 03/13/17 [Last Taken 03/13/17] Rivastigmine Tartrate [Rivastigmine] 4.5 mg PO BID 03/13/17 [Last Taken 03/13/17 ] Aspirin EC [Aspirin EC 81 mg (*)] 81 mg PO DAILY #0 tab 03/16/17 [Last Taken Unknown] Atorvastatin Calcium [Lipitor 20 mg (*)] 40 mg PO DAILY #60 tab 03/16/17 [Last Taken Unknown] Carvedilol [Coreg (*)] 3.125 mg PO BIDMEAL #60 tab 03/16/17 [Last Taken Unknown] Nitroglycerin [Nitrostat 0.4 mg (*)] 0.4 mg SL Q5M PRN #1 btl 03/16/17 [Last Taken Unknown] Ticagrelor [Brilinta] 90 mg PO BID #60 tab 03/16/17 [Last Taken Unknown] Discharge Medications: Refer to the Discharge Home Medication list for PRN reason. PICC Care - Routine: N/A - Orders Services needed: Registered Nurse (check BP daily), Certified Accident Investigator ( Assist with ambulation BID), Physical Therapy (Ambulate daily with BP check. ) Diet Recommendation: cardiac -low fat low salt Diet Texture: Regular Texture Diet Weigh Patient: weekly Tobin: No Wound Care Instructions: R and L groin site keep clean w/ soap and water. NO ointments. No dressing needed Activity/Weight Bearing Restrictions: Encourage ambulation to meals. Ambulate halls twice daily per PT advancement. - Labs/Radiology Other Lab Name, Date and Time: Lipids, CMP, CPK in [address] Rodríguez Wooten [phone] Call or Fax Lab and Imaging Results to: Rodríguez Wooten MD [phone] - Follow Up Care Current Providers and Referrals: Patient,NotPresent [Unknown] - As per Instructions Rodríguez Wooten MD [Medical Doctor] - 03/29/17 1:15 pm (Arrive for appointment at 1:00 to fill out information) Deisy Maya CNP [Certified Nurse Practioner] -
[2017-03-16 17:34] VITALS: BP 99/59; PULSE 69
--- NOTE | 2017-03-17 18:14 | GDS ---
[f rep st] DISCHARGE SUMMARY ADMITTING DIAGNOSES: 1. Acute coronary syndrome. 2. Percutaneous coronary intervention of the left anterior descending. 3. Cardiomyopathy with ejection fraction at 50% currently. 4. Hyperlipidemia. 5. Hypotension. DISCHARGE DIAGNOSES: 1. Coronary artery disease, status post percutaneous coronary intervention to the left anterior descending with subacute stent thrombosis complication, requiring repeat PCI to his LAD. 2. Cardiomyopathy. 3. Hyperlipidemia. 4. Hypotension. COURSE IN THE EMERGENCY ROOM: This gentleman was brought into the ER on 2016 by EMS personnel. He presented with an ACS. Echocardiogram showed apical wall motion abnormality. 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 Treatment was with PCI of his LAD using a Synergy drug-eluting stent. He return to his ICU bed, and approximately at midday his procedure course was complicated by subacute stent thrombosis. Again, he was treated with PCI of the LAD. Peak CPK was 515, LVEF was 50% with apical hypokinesis. He had no significant arrhythmias following the second procedure. He was placed on Brilinta 90 mg twice daily, aspirin 81 mg daily, and Coreg. There was consideration for lisinopril. However, due to his hypotension, he could not continue on the lisinopril. He will continue on Coreg for his cardiomyopathy, with most recent EF of 50%. Hyperlipidemia with LDL 141. He will continue on 40 mg of Lipitor daily. He is to have a full lipid panel in 3-6 months to evaluate his tolerance to lipid therapy. Hypotension was noted after he was started on the cardiac medications, including Coreg and lisinopril. On the morning of 03/14/2017, he became very hypotensive. This was suspect to secondary use of lisinopril, and autonomic insufficiency related to his Parkinson's disease. Lisinopril was discontinued at that time, and since then his blood pressure has been better with systolic pressures typically at no less than 100. He has had an uncomplicated course of recovery. He will be transferred back to [facility] for continued recovery. On day of discharge, he is feeling well. He visited with his brother and a friend who just arrived from [place], and is in good spirits. He did have a Plavix test done prior to discharge in the event he can be switched from Brilinta to Plavix after 6 weeks. DISCHARGE PLAN: Return to [place] for recovery. He will need physical therapy for ambulation, and RN care for daily blood pressures. He is encouraged to be active. Groin sites are intact. Groin site areas, right and left groin, should be kept clean with soap and water. No ointments. At this time, he is stable for discharge. /[id number]/MODL and [id number]/MODL [facility]
[2017-03-19 15:04] LABS: 2C19S INTERPRETATION See Comments
--- NOTE | 2017-03-20 10:00 | PQFORM ---
PHYSICIAN QUERY FORM Needs Your Response This query form is being sent to you to assure this patient record is coded properly. Please respond to the question below: REAL ESTATE REPRESENTATIVE QUESTION: Dear Dr. Hayward, In reviewing this patients medical record, it is noted in Dr. Stark's 03/13 consultations report as well as the Vp Client Services progress notes dated 03/14-03/15 the patient had the diagnosis of 'Acute myocardial infarction.' The patient presented to the ER with 'chest pain'. After study, should the diagnosis of 'Acute myocardial infarction' be included in the Discharge Summary? Yes No X Other more appropriate diagnosis acute coronary syndrome Unable to determine Thank you DALTON Bear HIM/Coding Dept. [phone] INSTRUCTIONS FOR RESPONSE: Answer question by clicking on the "Edit Document" button. Move cursor to area below the stars. When complete, hit "Save." Click on the "Sign" button, then click "Sign" again. Type in your PIN and hit "Enter." MTDD
== END 2017-03-16 18:40 | DRG 247 ==
LOC: EDUNIT# → FCATH 09:17 → INTOOBSV 09:56 → F2N 09:56 → OBSVTOIN 03-15 10:40 → F2W 03-15 12:20
PROVIDERS: ADMIT Internal Medicine Cardiovascular Disease; ATTEND Internal Medicine Cardiovascular Disease
PROC: 02C03ZZ Extirpation of Matter from Coronary Artery, One Artery, Percutaneous Approach (ICD-10-PCS; principal; 2017-03-13)
PROC: 027035Z Dilation of Coronary Artery, One Artery with Two Drug-eluting Intraluminal Devices, Percutaneous Approach (ICD-10-PCS; principal; 2017-03-13)
PROC: B2111ZZ Fluoroscopy of Multiple Coronary Arteries using Low Osmolar Contrast (ICD-10-PCS; principal; 2017-03-13)
PROC: B2151ZZ Fluoroscopy of Left Heart using Low Osmolar Contrast (ICD-10-PCS; principal; 2017-03-13)
PROC: 02C03ZZ Extirpation of Matter from Coronary Artery, One Artery, Percutaneous Approach (ICD-10-PCS; 2017-03-13)
PROC: 027034Z Dilation of Coronary Artery, One Artery with Drug-eluting Intraluminal Device, Percutaneous Approach (ICD-10-PCS; 2017-03-13)
PROC: B2111ZZ Fluoroscopy of Multiple Coronary Arteries using Low Osmolar Contrast (ICD-10-PCS; 2017-03-13)
DX: I25.10 Atherosclerotic heart disease of native coronary artery without angina pectoris (principal); E78.5 Hyperlipidemia, unspecified; I42.9 Cardiomyopathy, unspecified; I95.9 Hypotension, unspecified; T46.4X5A Adverse effect of angiotensin-converting-enzyme inhibitors, initial encounter; T85.868A Thrombosis due to other internal prosthetic devices, implants and grafts, initial encounter; G20 Parkinson's disease; F03.90 Unspecified dementia, unspecified severity, without behavioral disturbance, psychotic disturbance, mood disturbance, and anxiety
CPT/HCPCS: 81225-90; 82947-QW; 97161-GP; 97167-GO; 97535-GO; C1725; C1753; C1757; C1760; C1769; C1874; C1887; C9600; C9606; G0378; G8978-GP-CI; G8979-GP-CI; G8987-GO-CL; G8988-GO-CK; J0461; J0583; J1327; J1644; J2250; J2405; J3010; J3490; Q9967

== ENCOUNTER → 2017-03-22 | Outpatient (CLI) | payer OTHER, MEDICAID | LOC: BHFA 09:45 | PROVIDERS: ATTEND Internal Medicine Cardiovascular Disease | DX: I21.09 ST elevation (STEMI) myocardial infarction involving other coronary artery of anterior wall (principal); R53.83 Other fatigue; R06.02 Shortness of breath ==